=== PATIENT | female | born 1975 | race Caucasian/White ===

== ENCOUNTER 2016-07-05 15:42 | Emergency (ER) | payer SELFPAY ==
[2016-07-05 16:19] VITALS: BP 119/77
[2016-07-05] MEDS ORDERED: Ipratropium 0.5MG/2.5ML NEB* 0.5 MG/2.5 ML NEB.SOLN INH ONE (16:33)
[2016-07-05] MEDS ORDERED: Albuterol 2.5 MG/3 ML NEB.SOL* (0.083%) INH ONE (16:33)
[2016-07-05] MEDS ORDERED: Albuterol/Ipratropium NEB.SOL* Albuterol 2.5 MG/Ipratropium 0.5 MG 3 ML INH ONE (16:42)
--- NOTE | 2016-07-05 17:04 | RAD ---
Indication: Off. 2 views of the chest including dual energy PA views demonstrate no mediastinal shift. Heart is of normal size and configuration. Lung mena are clear. Overall no changes noted since previous exam of February 05, 2015. IMPRESSION: No active cardiopulmonary disease is noted.
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
== END 2016-07-05 17:32 | disposition home or self-care (01) ==
LOC: UCEAST 15:42
DX: J32.9 Chronic sinusitis, unspecified (principal); J20.9 Acute bronchitis, unspecified; Z88.6 Allergy status to analgesic agent; Z90.49 Acquired absence of other specified parts of digestive tract; Z77.22 Contact with and (suspected) exposure to environmental tobacco smoke (acute) (chronic)
CPT/HCPCS: 71020; 99212; A9270-GY; G0463

== ENCOUNTER 2016-08-09 14:06 | Emergency (ER) | payer SELFPAY ==
[2016-08-09 14:20] VITALS: BP 123/81
--- NOTE | 2016-08-09 15:18 | RAD ---
INDICATION: Facial injury. TECHNIQUE: 4 views of the facial bones were obtained. FINDINGS: No fracture is seen. There is mild deviation of the nasal septum toward the right side. The paranasal sinuses appear clear. IMPRESSION: NO EVIDENCE FOR FRACTURE.
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
== END 2016-08-09 16:13 | disposition home or self-care (01) ==
LOC: EEVIPCON 14:06 → ED 14:06
DX: S00.33XA Contusion of nose, initial encounter (principal); Y09 Assault by unspecified means; Y93.9 Activity, unspecified; Y92.89 Other specified places as the place of occurrence of the external cause; R51 Headache
CPT/HCPCS: 70140; 99281

== ENCOUNTER 2017-05-08 20:58 | Emergency (ER) | payer MEDICAID ==
[2017-05-08 21:13] VITALS: BP 123/76
--- NOTE | 2017-05-08 21:18 | UC ---
Respiratory Complaint HPI - HPI Summary HPI Summary: Pt presents with sinus congestion that started about a week ago. Over the last 2 -3 days has developed b/l ear pain, ST, and a slightly productive cough. She has not tried anything OTC. Denies fever, chills, SOB, chest pain, abdominal pain, N/V/D/C. She tells me that she does have a symbicort and another inhaler at home, but she has not been using them as directed. - History of Current Complaint Chief Complaint: UCRespiratory Stated Complaint: EAR ACHE, SINUS CONGESTION, AND COUGH Time Seen by Provider: 05/08/17 21:12 Hx Obtained From: Patient Hx Last Menstrual Period: 06/29/16 Onset/Duration: Gradual Onset Timing: Constant Severity Initially: Mild Severity Currently: Moderate Pain Intensity: 7 Pain Scale Used: 0-10 Numeric Character: Cough: Productive - Allergies/Home Medications Allergies/Adverse Reactions: Allergies Allergy/AdvReac Type Severity Reaction Status Date / Time Aspirin Allergy BLEEDING Verified 08/09/16 14:16 DISORDER Ibuprofen Allergy BLEEDING Verified 08/09/16 14:16 DISORDER PMH/Surg Hx/FS Hx/Imm Hx Endocrine History: Hypothyroidism Respiratory History: COPD, Asthma - Surgical History Surgical History: Yes Surgery Procedure, Year, and Place: 2- [id number]. GALLBL[facility] REMOV[place]- [facility] [place]ST [place] [place]. Bunion Repair July 2012. Tubal Ligation - Family History Known Family History: Positive: Respiratory Disease - Social History Occupation: Employed Full-time Lives: With Family Alcohol Use: Rare Substance Use Type: None Smoking Status (MU): Never Smoked Tobacco Household Exposure Type: Cigarettes - Immunization History Most Recent Influenza Vaccination: 02/2016 Review of Systems Constitutional: Negative Skin: Negative Eyes: Negative ENT: Sore Throat, Ear Ache, Nasal Discharge, Sinus Congestion, Sinus Pain/ Tenderness Respiratory: Cough Cardiovascular: Negative Gastrointestinal: Negative All Other Systems Reviewed And Are Negative: Yes Physical Exam Triage Information Reviewed: Yes Appearance: Well-Appearing, Obese Vital Signs: Initial Vital Signs Temp 97.9 F 05/08/17 21:10 Pulse 84 05/08/17 21:10 Resp 18 05/08/17 21:10 BP 123/76 05/08/17 21:10 Pulse Ox 100 05/08/17 21:10 Vital Signs Reviewed: Yes Eyes: Positive: Conjunctiva Clear. Negative: Conjunctiva Inflamed, Discharge ENT: Positive: Hearing grossly normal, Pharynx normal, Nasal congestion, Nasal drainage, TMs normal, Hoarse voice, Sinus tenderness, Uvula midline. Negative: Pharyngeal erythema, TM bulging, TM dull, TM red, Tonsillar swelling, Tonsillar exudate, Muffled voice Neck: Positive: Supple, Nontender, No Lymphadenopathy Respiratory: Positive: Chest non-tender, Lungs clear, Normal breath sounds, No respiratory distress, No accessory muscle use Cardiovascular: Positive: RRR, No Murmur, Pulses Normal Neurological: Positive: Alert Psychological: Positive: Age Appropriate Behavior Skin: Negative: rashes UC Diagnostic Evaluation - Laboratory O2 Sat by Pulse Oximetry: 100 Respiratory Course/Dx - Course Course Of Treatment: Sinusitis - Amoxicillin 10 days. Use at home inhalers as prescribed. Mucinex OTC - Differential Dx/Diagnosis Provider Diagnoses: Sinusitis. Cough Discharge - Discharge Plan Condition: Stable Disposition: HOME Prescriptions: Amoxicillin PO (*) [Amoxicillin 500 MG CAP*] 500 mg PO Q12H #20 cap Patient Education Materials: Sinusitis (ED) Referrals: Tonya Mcclelland MD [Primary Care Provider] - Additional Instructions: If you develop a fever, SOB, chest pain, new or worsening symptoms - please call your PCP or go to the ED.
== END 2017-05-08 21:27 | disposition home or self-care (01) ==
LOC: UCEAST 20:58
DX: J32.9 Chronic sinusitis, unspecified (principal); R05 Cough
CPT/HCPCS: 99212; G0463

== ENCOUNTER 2017-06-18 09:12 | Emergency (ER) | payer OTHER ==
[2017-06-18 09:40] VITALS: BP 121/70
[2017-06-18] MEDS ORDERED: Tetracaine 0.5% OPTH.SOL 4 ML* 1 DROP BTL BOTH EYES ONE (10:17)
[2017-06-18] MEDS ORDERED: Fluorescein Sod TOPICAL 0.6* 0.6 MG TEST OPHTHALMIC ONE (10:17)
--- NOTE | 2017-06-18 10:34 | UC ---
Eye Complaint HPI - HPI Summary HPI Summary: Patient presents to from PCP office with CC Of R conjunctival injection since last night. She was seen at her PCP's office this morning who could not rule out an abrasion, so was sent here. She states during the middle of the night she awoke with injection, irritation and slight pain in the right eye. She denies getting any foreign bodies in the eye. Denies contact use. She denies any blurry vision, photophobia. Denies headaches. She is otherwise healthy. - History of Current Complaint Chief Complaint: UCEye Stated Complaint: EYE COMPLAINT Time Seen by Provider: 06/18/17 09:47 Hx Obtained From: Patient Hx Last Menstrual Period: 05/29/17 ?: No Onset/Duration: Sudden Onset Timing: Constant Severity Initially: Moderate Severity Currently: Moderate Pain Intensity: 10 Pain Scale Used: 0-10 Numeric Location of Injury: Conjunctiva Character: Dull Aggravating Factor(s): Nothing Alleviating Factor(s): Nothing Associated Signs And Symptoms: Positive: Drainage (Clear) - Risk Factors Penetrating Injury Risk Factor: Negative Globe Rupture Risk Factors: Negative Acute Glaucoma Risk Factors: Eye Inflammation Optic Artery Occlusion Risk Factors: Negative - Allergies/Home Medications Allergies/Adverse Reactions: Allergies Allergy/AdvReac Type Severity Reaction Status Date / Time aspirin Allergy bleeding Verified 06/18/17 09:36 discorder ibuprofen [From Motrin] Allergy bleeding Verified 06/18/17 09:36 discorder PMH/Surg Hx/FS Hx/Imm Hx Previously Healthy: Yes - Surgical History Surgical History: Yes Surgery Procedure, Year, and Place: 2- [id number]. [place] [facility] [place] [place] Bunion Repair July 2012. Tubal Ligation - Family History Known Family History: Positive: Respiratory Disease - Social History Alcohol Use: Rare Substance Use Type: None Smoking Status (MU): Never Smoked Tobacco Household Exposure Type: Cigarettes - Immunization History Most Recent Influenza Vaccination: 02/2016 Review of Systems Constitutional: Negative Skin: Negative Eyes: Drainage, Eye Redness ENT: Negative Respiratory: Negative Motor: Negative Neurovascular: Negative Neurological: Negative Psychological: Negative Is Patient Immunocompromised?: No All Other Systems Reviewed And Are Negative: Yes Physical Exam Triage Information Reviewed: Yes Appearance: Well-Appearing, Well-Nourished Vital Signs: Initial Vital Signs Temp 98 F 06/18/17 09:37 Pulse 69 06/18/17 09:37 Resp 16 06/18/17 09:37 BP 121/70 06/18/17 09:37 Pulse Ox 100 06/18/17 09:37 Vital Signs Reviewed: Yes Eyes: Positive: Conjunctiva Inflamed, Discharge - Watery Neck exam: Normal Neck: Positive: Supple, No Lymphadenopathy Respiratory Exam: Normal Respiratory: Positive: Chest non-tender, Lungs clear Cardiovascular Exam: Normal Cardiovascular: Positive: RRR, No Murmur Neurological Exam: Normal Neurological: Positive: Alert Psychological: Positive: Normal Response To Family Skin Exam: Normal Eye Complaint Course/Dx - Course Course Of Treatment: Treatment course treatment the patient is evaluated for right eye injection. Tetracaine and fluorescein stain with Wood's lamp evaluated the eye with no signs of foreign body or abrasion. She will be placed on topical antibiotic for a small nonvisualized abrasion. She will follow up with ophthalmology tomorrow if symptoms do not improve. - Differential Dx/Diagnosis Differential Diagnosis/HQI/PQRI: Conjunctivitis, Corneal Abrasion Provider Diagnoses: Eye irritation Discharge - Discharge Plan Condition: Stable Disposition: HOME Prescriptions: Polymyx/Trimethoprim OPTH* [Polytrim OPHTH*] 1 drop BOTH EYES Q3H #1 btl Patient Education Materials: Conjunctivitis (ED) Forms: *Work Release Referrals: Tonya Mcclelland MD [Primary Care Provider] - Hermilo Villafuerte MD [Medical Doctor] - Additional Instructions: Please follow up with Dr. Villafuerte for worsening or changing symptoms Use drops as prescribed Tylenol or ibuprofen for pain
== END 2017-06-18 10:43 | disposition home or self-care (01) ==
LOC: UCEAST 09:12
DX: H57.9 Unspecified disorder of eye and adnexa (principal); Z90.49 Acquired absence of other specified parts of digestive tract; Z88.6 Allergy status to analgesic agent; Z77.22 Contact with and (suspected) exposure to environmental tobacco smoke (acute) (chronic)
CPT/HCPCS: 99212; A9270-GY; G0463

== ENCOUNTER 2018-04-22 08:50 | Emergency (ER) | payer BC, OTHER ==
[2018-04-22 09:01] VITALS: BP 116/64
--- NOTE | 2018-04-22 09:52 | UC ---
Throat Pain/Nasal Jakob HPI - HPI Summary HPI Summary: 42 y/o f with nasal congestion, shortness of breath, campos aches. no fever, chills. h/o seasonal and environmental allergies and asthma, feels astham flare--> taking albuterol rescue inhaler x 4 yesterday. on symbicort, flonase , and claritin. took dayquil yesterday. + cough, + ear pain. - History of Current Complaint Chief Complaint: UCRespiratory Stated Complaint: COUGH,SORE THROAT Time Seen by Provider: 04/22/18 09:26 Hx Obtained From: Patient Hx Last Menstrual Period: 03/23/18 ?: No Onset/Duration: Sudden Onset, Lasting Days - x 10 days Severity: Severe Pain Intensity: 10 Pain Scale Used: 0-10 Numeric Cough: Nonproductive Associated Signs & Symptoms: Positive: Sinus Discomfort, Nasal Discharge. Negative: Fever Related History: Seasonal Allergies - Allergies/Home Medications Allergies/Adverse Reactions: Allergies Allergy/AdvReac Type Severity Reaction Status Date / Time aspirin Allergy bleeding Verified 04/22/18 09:02 discorder ibuprofen [From Motrin] Allergy bleeding Verified 04/22/18 09:02 discorder PMH/Surg Hx/FS Hx/Imm Hx Previously Healthy: No - asthma - Surgical History Surgical History: Yes Surgery Procedure, Year, and Place: 2- [id number]. [place] [facility] [place] [place]. Bunion Repair July 2012. Tubal Ligation - Family History Known Family History: Positive: Respiratory Disease - Social History Alcohol Use: Rare Substance Use Type: None Smoking Status (MU): Never Smoked Tobacco Household Exposure Type: Cigarettes - Immunization History Most Recent Influenza Vaccination: 02/2016 Review of Systems All Other Systems Reviewed And Are Negative: Yes Constitutional: Positive: Fatigue ENT: Positive: Ear Ache, Nasal Discharge, Sinus Congestion, Sinus Pain/ Tenderness Respiratory: Positive: Shortness Of Breath, Cough Is Patient Immunocompromised?: No Physical Exam Triage Information Reviewed: Yes Appearance: No Pain Distress, Well-Nourished, Ill-Appearing - mild Vital Signs: Initial Vital Signs Temp 98 F 04/22/18 08:59 Pulse 98 04/22/18 08:59 Resp 17 04/22/18 08:59 BP 116/64 04/22/18 08:59 Pulse Ox 99 04/22/18 08:59 Eyes: Positive: Conjunctiva Clear ENT: Positive: Pharynx normal, Nasal congestion, TM bulging, TM dull - R sided, no pain with pinna pulling n operiaur tenderness, Sinus tenderness - frontal, max b/l, Uvula midline. Negative: Pharyngeal erythema, Nasal drainage, Tonsillar swelling, Tonsillar exudate, Dental tenderness Neck: Positive: Supple, Nontender, No Lymphadenopathy Respiratory: Positive: Chest non-tender, Lungs clear, Normal breath sounds, No respiratory distress, No accessory muscle use. Negative: Respiratory distress, Decreased breath sounds, Crackles, Rhonchi, Stridor, Wheezing Cardiovascular: Positive: RRR, No Murmur Abdomen Description: Negative: CVA Tenderness (R), CVA Tenderness (L) Neurological Exam: Normal Throat Pain/Nasal Course/Dx - Course Course Of Treatment: sinusitis, abx given, OTC treatments such as dayquil, mucsinex for symptoms - Differential Dx/Diagnosis Provider Diagnosis: Sinusitis Discharge - Sign-Out/Discharge Documenting (check all that apply): Patient Departure All imaging exams completed and their final reports reviewed: No Studies - Discharge Plan Condition: Good Disposition: HOME Prescriptions: Azithromyxin SHANE (NF) [Z-Shane (Zithromax) 250 mg tabs #6] 2 tab PO .TODAY, THEN 1 DAILY #6 tab Patient Education Materials: Sinusitis (ED) Forms: *Work Release Referrals: Tonya Mcclelland MD [Primary Care Provider] - Additional Instructions: - Increase fluid intake - Antibiotics as directed - Work note for today - Albuterol as needed, go to ER with shortness of breath - over the counter medications for symptoms such as ibuprofen for body aches, muscinex for cough - Billing Disposition and Condition Condition: GOOD Disposition: Home
== END 2018-04-22 10:10 | disposition home or self-care (01) ==
LOC: UCEAST 08:50
DX: J32.9 Chronic sinusitis, unspecified (principal); J45.909 Unspecified asthma, uncomplicated; Z88.6 Allergy status to analgesic agent
CPT/HCPCS: 99212; G0463

== ENCOUNTER 2018-08-08 09:55 | Emergency (ER) | payer BC ==
[2018-08-08 10:17] VITALS: BP 120/76
--- NOTE | 2018-08-08 10:52 | UC ---
General HPI - HPI Summary HPI Summary: Has had URI symptoms for the past week . Mainly congestion and ear fullness. Had a migraine last week that lasted longer than normal. Has since improved. Having some throat pain and b/l ear pain. Subjective temp yesterday while at work. +Chills. Tried mucinex for her congestion. Several of her younger family members are sick with URI illness. Meds: reviewed. No N/V/D. No abdominal pain. - History of Current Complaint Chief Complaint: UCGeneralIllness Stated Complaint: SORE THROAT COUGH HEAD CONGESTION Time Seen by Provider: 08/08/18 10:40 Hx Last Menstrual Period: 08/07/18 Pain Intensity: 5 - Allergy/Home Medications Allergies/Adverse Reactions: Allergies Allergy/AdvReac Type Severity Reaction Status Date / Time aspirin Allergy bleeding Verified 08/08/18 10:17 discorder ibuprofen [From Motrin] Allergy bleeding Verified 08/08/18 10:17 discorder Home Medications: Home Medications Cholecalciferol (Vitamin D3) [Vitamin D3] 1,000 unit PO DAILY WITH MEAL [History Confirmed 08/08/18] PMH/Surg Hx/FS Hx/Imm Hx Previously Healthy: Yes Respiratory History: Asthma - Surgical History Surgical History: Yes Surgery Procedure, Year, and Place: 2- [id number]. GALLBLADDER REMOVED- [facility] – [place]. CYST REMOVED FROM HAND-[facility] [place]. [place]OMY[place]. Bunion Repair July 2012. Tubal Ligation - Family History Known Family History: Positive: Respiratory Disease - Social History Alcohol Use: None Substance Use Type: None Smoking Status (MU): Never Smoked Tobacco Household Exposure Type: Cigarettes - Immunization History Most Recent Influenza Vaccination: 02/2016 Review of Systems All Other Systems Reviewed And Are Negative: Yes Constitutional: Positive: Fever ENT: Positive: Sore Throat, Ear Ache, Sinus Congestion Respiratory: Positive: Negative Cardiovascular: Positive: Negative Physical Exam Triage Information Reviewed: Yes Appearance: Well-Appearing Vital Signs: Initial Vital Signs Temp 97.6 F 08/08/18 10:13 Pulse 76 08/08/18 10:13 Resp 18 08/08/18 10:13 BP 120/76 08/08/18 10:13 Pulse Ox 100 08/08/18 10:13 Vital Signs Reviewed: Yes ENT: Positive: Pharyngeal erythema, Other - b/l TM's clear fluid worse on right , no bulging or purulent drainage Neck exam: Normal Neck: Positive: Supple Respiratory: Positive: Lungs clear, Normal breath sounds Cardiovascular: Positive: RRR, No Murmur Course/Dx - Course Course Of Treatment: This is a 42 yr old with seasonal allergies c/o congestion and ear fullness Assessment Viral syndrome Nontoxic appearing Plan Recommend trying to switch claritin to Zyrtec as directed Continue nasal spray as discussed Can try benadryl at bedtime for congestion or can try sudafed for congestion If symptoms persist or worsen, follow up with your primary or return to urgent care - Diagnoses Provider Diagnosis: Viral syndrome Discharge - Sign-Out/Discharge Documenting (check all that apply): Patient Departure All imaging exams completed and their final reports reviewed: No Studies - Discharge Plan Condition: Good Disposition: HOME Patient Education Materials: Viral Syndrome (ED) Referrals: Tonya Mcclelland MD [Primary Care Provider] - Additional Instructions: Recommend trying to switch claritin to Zyrtec as directed Continue nasal spray as discussed Can try benadryl at bedtime for congestion or can try sudafed for congestion If symptoms persist or worsen, follow up with your primary or return to urgent care - Billing Disposition and Condition Condition: GOOD Disposition: Home
== END 2018-08-08 10:53 | disposition home or self-care (01) ==
LOC: UCEAST 09:55
DX: B34.9 Viral infection, unspecified (principal); J45.909 Unspecified asthma, uncomplicated; Z88.6 Allergy status to analgesic agent; Z77.22 Contact with and (suspected) exposure to environmental tobacco smoke (acute) (chronic)
CPT/HCPCS: 99211; G0463

== ENCOUNTER 2018-10-19 10:48 | Emergency (ER) | payer BC ==
[2018-10-19 10:56] VITALS: BP 125/77
--- NOTE | 2018-10-19 10:58 | UC ---
Skin Complaint HPI - HPI Summary HPI Summary: 43 yo female presents with b/l redness and itching to her palms for the last 2 weeks. She has been applying calamine lotion with no change in her symptoms. She is feeling well otherwise and denies arthralgias, fever, recent illness, or rash elsewhere. She denies new soaps, detergents, or clothing. She does wear gloves often at work. - History of Current Complaint Chief Complaint: UCSkin Time Seen by Provider: 10/19/18 10:57 Stated Complaint: SKIN REACTION Hx Obtained From: Patient Hx Last Menstrual Period: 09/26/18 Onset/Duration: Sudden Onset Onset Severity: Moderate Current Severity: Moderate Pain Intensity: 5 Pain Scale Used: 0-10 Numeric - Allergy/Home Medications Allergies/Adverse Reactions: Allergies Allergy/AdvReac Type Severity Reaction Status Date / Time aspirin Allergy bleeding Verified 10/19/18 10:56 discorder ibuprofen [From Motrin] Allergy bleeding Verified 10/19/18 10:56 discorder PMH/Surg Hx/FS Hx/Imm Hx - Additional Past Medical History Additional PMH: None - Surgical History Surgical History: Yes Surgery Procedure, Year, and Place: 2- [id number]. [place]ALLBLADDER REMOVED- [facility] [place]. CYST REMOVED FROM HAND-[facility] [place]. [place]OMY[place]. Bunion Repair July 2012. Tubal Ligation - Family History Known Family History: Positive: Respiratory Disease - Social History Lives: With Family Alcohol Use: None Substance Use Type: None Smoking Status (MU): Never Smoked Tobacco Household Exposure Type: Cigarettes - Immunization History Most Recent Influenza Vaccination: 02/2016 Review of Systems All Other Systems Reviewed And Are Negative: Yes Constitutional: Positive: Negative Skin: Positive: Rash Respiratory: Positive: Negative Cardiovascular: Positive: Negative Neurovascular: Positive: Negative Musculoskeletal: Positive: Negative Neurological: Positive: Negative Psychological: Positive: Negative Physical Exam - Summary Physical Exam Summary: GENERAL: NAD. WDWN. No pain distress. SKIN: B/L Palms with mild erythema and itching. No fissuring, ulcerations, urticaria, warmth. No streaking, bleeding, or drainage. NECK: Supple. Nontender. No lymphadenopathy. CHEST: No accessory muscle use. Breathing comfortably and in no distress. CV: Pulses intact. Cap refill <2seconds MSK: FROM of all fingers without contracture or pain NEURO: Alert. PSYCH: Age appropriate behavior. Triage Information Reviewed: Yes Vital Signs: Initial Vital Signs Temp 99 F 10/19/18 10:52 Pulse 92 10/19/18 10:52 Resp 16 10/19/18 10:52 BP 125/77 10/19/18 10:52 Pulse Ox 99 10/19/18 10:52 Vital Signs Reviewed: Yes Course/Dx - Course Course Of Treatment: Suspect dermatitis from her gloves. Will have her try a steroid cream and f/u if symptoms do not improve in 5-7 days. - Diagnoses Provider Diagnosis: Hand dermatitis Discharge - Sign-Out/Discharge Documenting (check all that apply): Patient Departure All imaging exams completed and their final reports reviewed: No Studies - Discharge Plan Condition: Stable Disposition: HOME Prescriptions: Triamcinolone 0.1% CREAM (NF) [Kenalog 0.1% Cream (NF)] 1 applic TOPICAL BID #1 applic Patient Education Materials: Contact Dermatitis (DC) Forms: *Work Release Referrals: Tonya Mcclelland MD [Primary Care Provider] - Additional Instructions: If you develop a fever, shortness of breath, chest pain, new or worsening symptoms - please call your PCP or go to the ED immediately. - Billing Disposition and Condition Condition: STABLE Disposition: Home
== END 2018-10-19 11:30 | disposition home or self-care (01) ==
LOC: UCEAST 10:48
DX: L30.9 Dermatitis, unspecified (principal)
CPT/HCPCS: 99201; G0463

== ENCOUNTER 2019-01-27 17:24 | Emergency (ER) | payer BC ==
[2019-01-27 19:32] LABS: ABS Basophils 0.1 10^3/ul (0-0.2); ABS Eosinophils 0.2 10^3/ul (0-0.6); ABS Lymphocytes 2.7 10^3/ul (1.0-4.8); ABS Monocytes 0.5 10^3/ul (0-0.8); ABS Neutrophils 5.3 10^3/ul (1.5-7.7); Eosinophil % 2.7 %; Hematocrit 37 % (35-47); Hemoglobin 11.8 g/dL (12.0-16.0); Lymphocyte % 30.3 %; Mean Corpuscular HGB Conc 32 g/dL (31-36); Mean Corpuscular Hemoglobin 25 pg (27-31); Mean Corpuscular Volume 78 fL (80-97); Mean Platelet Volume 8.1 fL (7.4-10.4); Nucleated Red Blood Cells % 0.2; Platelet Count 321 10^3/uL (150-450); Red Blood Count 4.71 10^6 /uL (3.70-4.87); Red Cell Distribution Width 15 % (10-15); White Blood Count 8.9 10^3/uL (3.5-10.8)
[2019-01-27 19:46] LABS: ALT 13 U/L (7-52); AST 12 U/L (13-39); Albumin 3.9 g/dL (3.2-5.2); Albumin/Globulin Ratio 1.3 (1-3); Alkaline Phosphatase 94 U/L (34-104); Anion Gap 4 mmol/L (2-11); BUN/Creatinine Ratio 15.1 (8-20); Blood Urea Nitrogen 14 mg/dL (6-24); CO2 Carbon Dioxide 28 mmol/L (22-32); Calcium 8.9 mg/dL (8.6-10.3); Chloride 105 mmol/L (101-111); EGFR Non-African American 66.1 (>60); Globulin 3.1 g/dL (2-4); Glucose 105 mg/dL (70-100); Potassium 4.3 mmol/L (3.5-5.0); Sodium 137 mmol/L (135-145)
[2019-01-27 19:52] LABS: HCG Pregnancy < 0.60 mIU/mL
--- NOTE | 2019-01-27 20:00 | ED ---
GI/ HPI - HPI Summary HPI Summary: Patient is a 43 y/o F presenting to [facility] with complaints of three days of left flank pain/lower back pain. She states that she went to her PCP earlier this morning. UA was negative. Patient was sent to [facility] for imaging to r/o kidney stone. Pain is characterized as constant. She states that the pain builds up as a pressure before urination and patient experiences relief after urination. She notes some increased frequency of urination and nausea but denies fever, chills , vomiting, and difficulty with bowel movements. She denies Hx of kidney issues but endorses Hx of UTI. Bending and twisting is noted to aggravate Sx. Pain does not radiate to her buttocks. On triage, pain is rated 6/10. Home medications and allergies are reviewed. - History of Current Complaint Chief Complaint: EDFlankPain Time Seen by Provider: 01/27/19 19:48 Stated Complaint: BACK PAIN PER PT Hx Obtained From: Patient Hx Last Menstrual Period: 09/26/18 Onset/Duration: Started Days Ago, Still Present Timing: Constant, Lasting Days Current Severity: Moderate Pain Intensity: 6 Location of Pain: Flank - left, Other - lower left back Associated Signs and Symptoms: Positive: Nausea, Vomiting, Flank Pain - left, Other: - positive - increased frequency of urination; negative - chills, difficulty with bowel movements. Negative: Fever Aggravating Factor(s): Movement, Movement Alleviating Factor(s): Nothing - Allergy/Home Medications Allergies/Adverse Reactions: Allergies Allergy/AdvReac Type Severity Reaction Status Date / Time aspirin Allergy bleeding Verified 01/27/19 17:33 discorder ibuprofen [From Motrin] Allergy bleeding Verified 01/27/19 17:33 discorder PMH/Surg Hx/FS Hx/Imm Hx Endocrine/Hematology History: Reports: Hx Thyroid Disease - Hypothyroidism Denies: Hx Diabetes, Hx Anemia Cardiovascular History: Denies: Hx Hypertension Respiratory History: Reports: Hx Asthma - INHALERS Denies: Hx Chronic Obstructive Pulmonary Disease (COPD) GI History: Reports: Hx Irritable Bowel, Other GI Disorders - DIVERTICULOSIS Denies: Hx Ulcer Sensory History: Denies: Hx Contacts or Glasses, Hx Hearing Aid Opthamlomology History: Denies: Hx Contacts or Glasses Neurological History: Reports: Hx Migraine - DAILY-THEN CAN GO FOR WEEKS WITHOUT - Surgical History Surgery Procedure, Year, and Place: 2- [id number]. GALLBLADDER REMOVED- [facility] [place]. CYST REMOVED FROM HAND-[facility] [place]. [place]OMY[place]. Bunion Repair July 2012. Tubal Ligation Hx Anesthesia Reactions: No Infectious Disease History: No Infectious Disease History: Denies: Hx Clostridium Difficile, Hx Hepatitis, Hx Human Immunodeficiency Virus (HIV), Hx of Known/Suspected MRSA, Hx Shingles, Hx Tuberculosis, Hx Known/ Suspected VRE, Hx Known/Suspected VRSA, History Other Infectious Disease, Traveled Outside the [place] in Last 30 Days - Family History Known Family History: Positive: Respiratory Disease - Social History Alcohol Use: None Substance Use Type: Reports: None Hx Tobacco Use: No Smoking Status (MU): Never Smoked Tobacco Review of Systems Negative: Fever, Chills Gastrointestinal: Other - negative - difficulty bowel movements Positive: Nausea. Negative: Vomiting Positive: frequency - increased frequency of urination , flank pain - left Musculoskeletal: Other - positive - lower left back All Other Systems Reviewed And Are Negative: Yes Physical Exam - Summary Physical Exam Summary: Appearance: Well-appearing, Morbidly obese, does not appear colicky Skin: Warm, dry, no obvious rash Eyes: sclera anicteric, no conjunctival pallor ENT: mucous membranes moist, pharynx appears normal Neck: Supple, nontender Respiratory: Clear to auscultation, no signs of respiratory distress Cardiovascular: Normal S1, S2. No murmurs. Normal distal pulses in tibial and radial bilaterally. Abdomen: Soft, nontender, normal active bowel sounds present Musculoskeletal: Strength/ROM Intact, increased pain with bending forward Neurological: A&Ox3, awake and alert, mentation is normal, speech is fluent and appropriate Psychiatric: affect is normal, does not appear anxious or depressed Triage Information Reviewed: Yes Vital Signs On Initial Exam: Initial Vitals Temp Pulse Resp BP Pulse Ox 97.7 F 78 16 118/78 97 01/27/19 17:29 01/27/19 17:29 01/27/19 17:29 01/27/19 17:29 01/27/19 17:29 Vital Signs Reviewed: Yes Diagnostics - Vital Signs Vital Signs Temp Pulse Resp BP Pulse Ox 01/27/19 17:29 97.7 F 78 16 118/78 97 - Laboratory Lab Results: Lab Results 01/27/19 01/27/19 Range/Units 19:19 19:19 WBC 8.9 (3.5-10.8) 10^3/uL RBC 4.71 (3.70-4.87) 10^6 /uL Hgb 11.8 L (12.0-16.0) g/dL Hct 37 (35-47) % MCV 78 L (80-97) fL MCH 25 L (27-31) pg MCHC 32 (31-36) g/dL RDW 15 (10-15) % Plt Count 321 (150-450) 10^3/uL MPV 8.1 (7.4-10.4) fL Neut % (Auto) 59.7 % Lymph % (Auto) 30.3 % [place] % (Auto) 6.2 % Eos % (Auto) 2.7 % Baso % (Auto) 1.1 % Absolute Neuts (auto) 5.3 (1.5-7.7) 10^3/ul Absolute Lymphs (auto) 2.7 (1.0-4.8) 10^3/ul Absolute Monos (auto) 0.5 (0-0.8) 10^3/ul Absolute Eos (auto) 0.2 (0-0.6) 10^3/ul Absolute Basos (auto) 0.1 (0-0.2) 10^3/ul Absolute Nucleated RBC 0.0 10^3/ul Nucleated RBC % 0.2 Sodium 137 (135-145) mmol/L Potassium 4.3 (3.5-5.0) mmol/L Chloride 105 (101-111) mmol/L Carbon Dioxide 28 (22-32) mmol/L Anion Gap 4 (2-11) mmol/L BUN 14 (6-24) mg/dL Creatinine 0.93 (0.51-0.95) mg/dL Est GFR ( Amer) 80.0 (>60) Est GFR (Non-Af Amer) 66.1 (>60) BUN/Creatinine Ratio 15.1 (8-20) Glucose 105 H (70-100) mg/dL Calcium 8.9 (8.6-10.3) mg/dL Total Bilirubin 0.30 (0.2-1.0) mg/dL AST 12 L (13-39) U/L ALT 13 (7-52) U/L Alkaline Phosphatase 94 (34-104) U/L Total Protein 7.0 (6.4-8.9) g/dL Albumin 3.9 (3.2-5.2) g/dL Globulin 3.1 (2-4) g/dL Albumin/Globulin Ratio 1.3 (1-3) Beta HCG, Quant Pending Result Diagrams: 01/27/19 19:19 01/27/19 19:19 Lab Statement: Any lab studies that have been ordered have been reviewed, and results considered in the medical decision making process. - Ultrasound RENAL US Ultrasound Interpretation Completed By: Radiologist Summary of Ultrasound Findings: RENAL US IMPRESSION: Sonographically normal left kidney. THIS REPORT WAS REVIEWED BY DR. ALEJANDRA GIBSON Course/Dx - Course Course Of Treatment: Patient is a 43 y/o F presenting to [facility] with complaints of three days of left flank pain/lower back pain. She states that she went to her PCP earlier this morning. UA was negative. Patient was sent to [facility] for imaging to r/o kidney stone. Pain is characterized as constant. She states that the pain builds up as a pressure before urination and patient experiences relief after urination. She notes some increased frequency of urination and nausea but denies fever, chills, vomiting, and difficulty with bowel movements. She denies Hx of kidney issues but endorses Hx of UTI. Patient is morbidly obese , no acute distress, and does not appear colicky. She has increased pain with bending forward. Bloodwork was obtained. Abnormal values showed Hgb 11.8, MCV 78 , MCH 25, glucose 105, AST 12. Beta HCG was negative. UA was negative. RENAL US IMPRESSION: Sonographically normal left kidney. Patient was discharged to home. She was advised to continue to take OTC meds for Sx and to follow up with PCP within a week. - Diagnoses Provider Diagnoses: Flank pain Discharge ED - Sign-Out/Discharge Documenting (check all that apply): Patient Departure - discharge Patient Received Moderate/Deep Sedation with Procedure: No - Discharge Plan Condition: Stable Disposition: HOME Patient Education Materials: Flank Pain (ED) Referrals: Tonya Mcclelland MD [Primary Care Provider] - As Soon As Possible Additional Instructions: The tests on the urine and the ultrasound of the kidney did not show any sign of a kidney or urinary tract problem as the cause of your pain. I suspect the pain is coming from a musculoskeletal source. For now you can take OTC pain medication, and contact your PCP for a followup visit this week. - Billing Disposition and Condition Condition: STABLE Disposition: Home - Attestation Statements Document Initiated by Renuka: Yes Documenting Scribe: JAVON MACK Provider For Whom Renuka is Documenting (Include Credential): TIMOTHY ROBERTS MD Scribe Attestation: JAVON Gaffney, scribed for TIMOTHY ROBERTS MD on 02/01/19 at 0547. Scribe Documentation Reviewed: Yes Provider Attestation: The documentation as recorded by the JAVON thomas accurately reflects the service I personally performed and the decisions made by me, TIMOTHY ROBERTS MD Status of Scribe Document: Viewed
[2019-01-27 20:08] LABS: Urine Appearance Clear; Urine Bilirubin Negative (Negative); Urine Blood Negative (Negative); Urine Color Straw; Urine Glucose Negative (Negative); Urine Ketones Negative (Negative); Urine Nitrite Negative (Negative); Urine Protein Negative (Negative); Urine Urobilinogen Negative (Negative)
[2019-01-28 00:16] VITALS: BP 131/75
== END 2019-01-28 00:16 | disposition home or self-care (01) ==
LOC: ED 17:24
DX: R10.32 Left lower quadrant pain (principal); M54.5 Low back pain; R11.2 Nausea with vomiting, unspecified; R35.0 Frequency of micturition; Z32.02 Encounter for pregnancy test, result negative; Z87.440 Personal history of urinary (tract) infections; E66.01 Morbid (severe) obesity due to excess calories; J45.909 Unspecified asthma, uncomplicated; Z90.49 Acquired absence of other specified parts of digestive tract; Z88.6 Allergy status to analgesic agent
CPT/HCPCS: 36415; 76775; 80053; 81003; 84702; 85025; 99282

== ENCOUNTER 2024-03-12 07:58 | Inpatient (IN) ==
[~2024-03-12 07:58] MED LIST: Naloxone 0.4 mg VIAL 0.4 mg/ml 1 ml VIAL IV PRN
[2024-03-12] MEDS ORDERED: HYDROmorphone 0.5 MG/0.5 ML SYRINGE IV SLOW PU PRN (08:00)
[2024-03-12 08:40] LABS: Rapid COVID-19 Molecular Undetected (Undetected)
[2024-03-12] MEDS ORDERED: Midazolam 2 mg/2 ml VIAL 1 mg/ml 2 ml VIAL (2 mg) ONE (08:43)
[2024-03-12] MEDS ORDERED: Ondansetron 4 mg VIAL 2 MG/ML 2 ml VIAL ONE (08:43)
[2024-03-12] MEDS ORDERED: Dexamethasone IV 4 MG/ML VIAL 1 ml VIAL ONE (08:43)
[2024-03-12] MEDS ORDERED: Propofol 10 MG/ML 20 ML BTL ONE (08:43)
[2024-03-12] MEDS ORDERED: Rocuronium 50 mg VIAL 10 mg/ml 5 ml VIAL (50 mg) ONE ×2 (08:43→12:02)
[2024-03-12] MEDS ORDERED: Lidocaine 2% PF 5 ML VIAL ONE (08:43)
[2024-03-12] MEDS ORDERED: fentaNYL 250 mcg/5 ml 50 MCG/ML 5 ml VIAL (250 MCG) ONE (08:44)
[2024-03-12] MEDS ORDERED: Scopolamine 1 mg/72hr PATCH ONE (08:48)
[2024-03-12] MEDS: Scopolamine 1 mg/72hr PATCH TRANSDERM ONE (08:49)
[2024-03-12] MEDS ORDERED: ceFAZolin 1 GM in Dextrose 1 GM/50 ML BAG ONE (08:51)
[2024-03-12] MEDS ORDERED: ceFAZolin 2 GM PREMIX 2 GM/50 ML BAG ONE (08:51)
[2024-03-12] MEDS: Lactated Ringers 1000 ml BAG 1,000 ML IV SCH ×2 (08:53→15:29)
[2024-03-12] MEDS ORDERED: Heparin 5000 UNITS/ML 1 mL VIAL ONE (08:59)
[2024-03-12] MEDS: Buffered Lidocaine 1% SYRIN 1 ml INTRADERM ONE (09:28)
[2024-03-12] MEDS: Desmopressin Acetate 20 MCG in NS 0.9% 50 ML 50 ML IVPB ONE (09:28)
[2024-03-12] MEDS ORDERED: Methylene Blue 1% (ANTIDOTE) 10 MG/ML 10 ML SDV VIAL IVPB ONE (09:40)
[2024-03-12] MEDS ORDERED: Bupivacaine 0.25% EPI 200,000 30 ML SDV ONE (09:40)
[2024-03-12] MEDS ORDERED: Acetaminophen IV 1 GM/100ML 1,000 MG/100 ML BAG IV ONE (10:40)
[2024-03-12] MEDS ORDERED: HYDROmorphone 0.5 MG/0.5 ML SYRINGE ONE ×2 (12:07→12:56)
[2024-03-12] MEDS ORDERED: HYDROmorphone 1 MG/1 ML SYRINGE IV SLOW PU PRN (13:35)
[2024-03-12] MEDS ORDERED: Albuterol HFA INHALER 8 gm MDI INH PRN (13:37)
[2024-03-12] MEDS: Acetaminophen IV 1 GM/100ML 1,000 MG/100 ML BAG IV PRN (17:40)
[2024-03-12] MEDS: HYDROmorphone 0.5 MG/0.5 ML SYRINGE IV SLOW PU PRN (20:25)
[2024-03-12] MEDS: Ondansetron 4 mg VIAL 2 MG/ML 2 ml VIAL IV PRN (22:26)
[2024-03-13] MEDS: D5W 1/2 NS KCl 20 meq 1000 ml 1,000 ML IV SCH (13:39)
[2024-03-13] MEDS ORDERED: HYDROcodone/ACET. 7.5/325 LIQ 15 ML UDC PO PRN (13:55)
[2024-03-13] MEDS: Heparin 5000 UNITS/ML 1 mL VIAL SUBCUT SCH (14:53)
[2024-03-14 08:08] LABS: ABS Basophils 0.1 10^3/uL (0.0-0.1); ABS Eosinophils 0.1 10^3/uL (0.0-0.5); ABS Lymphocytes 1.5 10^3/uL (1.0-4.8); ABS Monocytes 0.7 10^3/uL (0.0-0.9); Hematocrit 36.1 % (35-45); Hemoglobin 12.2 g/dL (11.5-14.3); Lymphocyte % 20.4 %; Mean Corpuscular Hemoglobin 29.3 pg (27-33); Mean Corpuscular Hgb Conc 33.9 g/dL (31-36); Mean Corpuscular Volume 86.6 fL (80-97); Mean Platelet Volume 9.1 fL (7.5-11.2); Platelet Count 252 10^3/uL (150-450); Red Blood Count 4.17 10^6/uL (3.63-4.92); Red Cell Distribution Width 14.3 % (12-17); White Blood Count 7.4 10^3/uL (3.8-11.8)
[2024-03-14 10:51] VITALS: BP 126/84
== END 2024-03-14 14:35 | disposition home or self-care (01) | DRG 403 ==
LOC: OR 07:58 → SSU 07:58 → OBSVTOIN 15:08
PROVIDERS: ADMIT Surgery; ATTEND Surgery